=== PATIENT | male | born 1965 | race Caucasian/White ===

== ENCOUNTER 2018-04-25 16:49 | Observation (INO) | payer BC ==
--- NOTE | 2018-04-25 17:42 | PDOC ---
Rapid Medical Evaluation Time Seen by Provider: 04/25/18 17:39 Medical Evaluation: 04/25/18 17:39 I have performed a brief-in person evaluation of this patient in triage. The patient presents to the ER c/o: diarrhea [id number] (non bloddy non bilious) with mid abd pain described as 8/10 non raidating carmping intermittent discomfort/more into hiw LLQ Anorexia x2days "Everything I was eating went right through me Pertinent PE findings: mid diffuse abd pain on palp I have ordered the following: Stool culture/cbc/cmp/iv The patient will proceed to the ED for further evaluation. H/O IBS and previous COLITIS FEELS SIMILAR TO MY COLITIS" Took immondium last Sunday until yesterday but "stopped working" Sent to the ER by his PMD Dr. Sebas Oliveros/Not affiliated with [facility] [phone] 04/25/18 18:04
[2018-04-25 18:05] LABS: BASO % 0.3 % (0-2.0); EOS % 0.6 % (0-4.5); HEMATOCRIT 44.3 % (35.4-49); HEMOGLOBIN 15.3 GM/dL (11.7-16.9); LYMPH % 27.6 % (8-40); MCH 31.7 pg (25.7-33.7); MCHC 34.6 g/dl (32.0-35.9); MEAN CELL VOLUME 91.8 fl (80-96); MONO % 16.3 % (3.8-10.2); NEUT % 55.2 % (42.8-82.8); PLATELET COUNT 314 K/MM3 (134-434); RBC 4.82 M/mm3 (4.00-5.60); RDW 12.4 % (11.9-15.9); WHITE BLOOD COUNT 8.5 K/mm3 (4.0-10.0)
--- NOTE | 2018-04-25 18:10 | PDOC ---
History of Present Illness - General Chief Complaint: Pain, Acute Stated Complaint: PCP SENT Time Seen by Provider: 04/25/18 17:39 History Source: Patient Exam Limitations: No Limitations - History of Present Illness Initial Comments: 04/25/18 18:08 52 YOM with h/o colitis, IBS, and HTN, who p/w light brown/watery diarrhea for the past 10 days, 8/10 intermittent mid-abdominal cramping radiating to the LLQ , decreased appetite x2 days, sxs not relieved with Immodium. This feels the same as his prior colitis 10 years ago for which he was tx in the hospital for a week with abx. He had a similar but self-limited episode about 6 months ago which resolved after 2 days. He spoke with his PCP Dr. Oliveros (not a [facility] affiliate) who instructed him to come into the ED. He denies fever, chills, nausea, vomiting, black/bloody stool, excessive EtOH use, recent abx treatments , camping, travel, drinking from streams, or eating strange/questionable foods. Past History - Past Medical History Allergies/Adverse Reactions: Allergies Allergy/AdvReac Type Severity Reaction Status Date / Time No Known Allergies Allergy Verified 04/25/18 18:01 Home Medications: Ambulatory Orders Atorvastatin Ca [Lipitor] 20 mg PO HS 04/25/18 Hyoscyamine Sulfate 0 mg PO DAILY 04/25/18 Lansoprazole [Prevacid] 30 mg PO DAILY 04/25/18 Olmesartan Medoxomil [Benicar] 20 mg PO DAILY 04/25/18 CVA: No COPD: No DVT: No - Immunization History Immunization Up to Date: Yes - Suicide/Smoking/Psychosocial Hx Smoking History: Never smoked Information on smoking cessation initiated: No Hx Alcohol Use: No Drug/Substance Use Hx: No Substance Use Type: None Review of Systems - Review of Systems Able to Perform ROS?: Yes Constitutional: Yes: Loss of Appetite, Malaise. No: Chills, Fever, Unexplained wgt Loss HEENTM: No: Nose Congestion, Throat Pain Respiratory: No: Cough, Shortness of Breath Cardiac (ROS): No: Chest Pain, Palpitations ABD/GI: Yes: Diarrhea, Other (abdominal pain). No: Constipated, Nausea, Vomiting : No: Burning, Dysuria Musculoskeletal: No: Back Pain, Neck Pain Integumentary: No: Bruising, Rash Neurological: No: Headache, Numbness, Tingling, Weakness, Dizziness Endocrine: No: Unexplained Weight Gain, Unexplained Weight Loss *Physical Exam - Vital Signs Last Vital Signs Temp Pulse Resp BP Pulse Ox 98.7 F 105 H 16 111/56 96 04/25/18 18:02 04/25/18 18:02 04/25/18 18:02 04/25/18 18:02 04/25/18 18:02 - Physical Exam General Appearance: Yes: Nourished, Appropriately Dressed, Other (nontoxic and well appearing adult male in no distress who is answering questions appropriately). No: Apparent Distress HEENT: positive: EOMI, MICHAEL, Normal Voice, Hearing Grossly Normal, Other (moist mucous membranes). negative: Scleral Icterus (R), Scleral Icterus (L), Nasal Congestion Neck: positive: Trachea midline, Supple. negative: Tender, Rigid Respiratory/Chest: positive: Lungs Clear, Normal Breath Sounds. negative: Respiratory Distress, Crackles, Rhonchi, Stridor, Wheezing Cardiovascular: positive: Regular Rhythm, Regular Rate. negative: Murmur Gastrointestinal/Abdominal: positive: Normal Bowel Sounds, Tender (mild umbilical and mild LLQ ttp), Soft, Increased Bowel Sounds. negative: Organomegaly, Pulsatile Mass, Guarding Musculoskeletal: positive: Normal Inspection. negative: CVA Tenderness, Decreased Range of Motion, Vertebral Tenderness Extremity: positive: Normal Capillary Refill, Normal Inspection, Normal Range of Motion. negative: Tender, Cyanosis Integumentary: positive: Normal Color, Dry, Warm. 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 No recent abx, travel, camping, drinking from streams, bloody/black/white stool. Does have h/o colitis requiring admission and abx 10 years ago, states feels similar. Initial Vital Signs Temp Pulse Resp BP Pulse Ox 98.7 F 105 H 16 111/56 96 04/25/18 18:02 04/25/18 18:02 04/25/18 18:02 04/25/18 18:02 04/25/18 18:02 Exam: Results as noted in Physical Exam section. DDX IBNLT: increased secretion (infectious; MC is viral with norovirus MC cause for adults and rotavirus MC cause for pediatrics), decreased absorption, increased osmotic load (e.g. laxatives, colchicine), abnormal motility (e.g. IBS , neuropathy) W/U ordered: CBCD CMP Lipase EKG CT A/P with IV/PO contrast TX ordered: IVF EKG: Reviewed; results as noted in ECG Review section. CT: Acute colitis, extensive, as noted on CT results. Laboratory Tests 04/25/18 04/25/18 04/25/18 17:45 17:45 20:30 WBC 8.5 RBC 4.82 Hgb 15.3 Hct 44.3 MCV 91.8 MCH 31.7 MCHC 34.6 RDW 12.4 Plt Count 314 MPV 8.0 Absolute Neuts (auto) 4.7 Neutrophils % 55.2 Lymphocytes % 27.6 Monocytes % 16.3 H Eosinophils % 0.6 Basophils % 0.3 Nucleated RBC % 0 Sodium 143 Potassium 4.1 Chloride 108 H Carbon Dioxide 27 Anion Gap 8 BUN 18 Creatinine 1.2 Creat Clearance w eGFR > 60 Random Glucose 86 Calcium 8.5 Total Bilirubin 0.6 AST 16 ALT 30 Alkaline Phosphatase 73 Total Protein 6.8 Albumin 3.8 Lipase 65 L Given watery diarrhea hx will treat for presumed infectious cause. Ordered is Levaquin/Flagyl IVPB. Patient's BP has decreased as below despite fluids. Vital Signs Temperature 98.7 F 04/25/18 18:02 Pulse Rate 95 H 04/25/18 21:00 Respiratory Rate 16 04/25/18 21:00 Blood Pressure 95/65 04/25/18 21:00 O2 Sat by Pulse Oximetry (%) 97 04/25/18 21:00 Reassessment: Feels the same, comfortable with plan to stay for Obs. ADMIT The Pt is unsafe for discharge at this time. They require further hospital observation, workup, and treatment. Microblog sent to [facility] for admission. Spoke with admitting team Dr. Alfonso and Dr. Jasso, in agreement Pt to be admitted. Decision to Admit order placed to [facility] covering attending Dr. Alfonso. *DC/Admit/Observation/Transfer Diagnosis at time of Disposition: Acute colitis Diarrhea Qualifiers: Diarrhea type: unspecified type Qualified Code(s): R19.7 - Diarrhea, unspecified - Discharge Dispostion Condition at time of disposition: Guarded Decision to Admit order: Yes - Referrals - Patient Instructions - Post Discharge Activity
[2018-04-25 18:31] LABS: ALBUMIN 3.8 g/dl (3.4-5.0); ANION GAP 8 (8-16); BILIRUBIN,TOTAL 0.6 mg/dL (0.2-1.0); BLOOD UREA NITROGEN 18 mg/dL (7-18); CALCIUM 8.5 mg/dL (8.5-10.1); CHLORIDE 108 mmol/L (98-107); CO2 27 mmol/L (21-32); CREATININE 1.2 mg/dL (0.7-1.3); GLUCOSE,RANDOM 86 mg/dL (74-106); POTASSIUM 4.1 mmol/L (3.5-5.1); SGOT/AST 16 U/L (15-37); SGPT/ALT 30 U/L (12-78); SODIUM 143 mmol/L (136-145); TOT PROT 6.8 g/dl (6.4-8.2)
[2018-04-25 18:32] LABS: ALK PHOS 73 U/L (45-117)
[2018-04-25] MEDS ORDERED: SODIUM CHLORIDE 0.9% 500 ML INFUS.BAG IV ONE (19:54)
--- NOTE | 2018-04-25 19:57 | PDOC ---
Attending Attestation - HPI HPI: 04/25/18 20:40 The patient is a 52-year-old male with a past medical history of colitis, IBS, and HTN presents to the emergency department with diarrhea. Patient presents with a 10-day history of diarrhea, denies hematochezia or melena, associated with lower abdominal cramping. Patient denies any changes in diet, reports a decrease in appetite secondary to multiple episodes of diarrhea. Patient reports taking Imodium, with occasional relief, patient states someday hell have 10 episodes and other days 3. Denies fever, chills, cough or a headache. Denies chest pain or shortness of breath. Denies sick contact. Denies recent use of antibiotic. Denies any change in diet. Denies dysuria, hematuria, frequency or urgency to urinate. Denies nausea, vomiting or constipation. Allergies: NKDA Social history: Alcohol use. Denies history of smoking or recreational drug use. Surgical history: None reported PCP: Dr. Sebas Oliveros Not affiliated with [facility] [phone] - Physicial Exam PE: 04/25/18 20:40 GENERAL: Awake, alert, and fully oriented, in no acute distress HEAD: No signs of trauma EYES: PERRLA, EOMI, sclera anicteric, conjunctiva clear ENT: Auricles normal inspection, hearing grossly normal, nares patent, oropharynx clear without exudates. Moist mucosa NECK: Normal ROM, supple, no lymphadenopathy, JVD, or masses LUNGS: Breath sounds equal, clear to auscultation bilaterally. No wheezes, and no crackles HEART: Regular rate and rhythm, normal S1 and S2, no murmurs, rubs or gallops ABDOMEN: (+) LLQ tenderness. Soft, normoactive bowel sounds. No guarding, no rebound. No masses EXTREMITIES: Normal range of motion, no edema. No clubbing or cyanosis. No cords, erythema, or tenderness NEUROLOGICAL: Cranial nerves II through XII grossly intact. Normal speech, normal gait SKIN: Warm, Dry, normal turgor, no rashes or lesions noted. - Medical Decision Making 04/25/18 20:46 Documentation prepared by Tatum Nieto, acting as medical educator for Jill Benoit DO. <Tatum Nieto - Last Filed: 04/25/18 20:46> - Resident Resident Name: Margo Roca - ED Attending Attestation I have performed the following: I have examined & evaluated the patient, The case was reviewed & discussed with the resident, I agree w/resident's findings & plan, Exceptions are as noted - Medical Decision Making 04/25/18 19:56 I, Dr. Jill Benoit, DO, attest that this document has been prepared under my direction and personally reviewed by me in its entirety. I further attest, that it accurately reflects all work, treatment, procedures and medical decision -making performed by me. 04/25/18 19:56 a/p: 52yo male with LLQ pain and diarrhea x 10 days -hx of colitis -GI is Dr. Christian -concern for colitis -no recent abx, no recent travel, no new meds -will send labs, ct abd/pelvis with contrast -ivf hydration -will monitor and reassess <Jill Benoit - Last Filed: 04/25/18 21:23> Heart Score/ECG Review - ECG Intrepretation Comment:: 04/25/18 21:23 sinus at 89, nl axis, nl interval, t wave inversions III, no other acute findings <Jill Benoit - Last Filed: 04/25/18 21:23>
[2018-04-25] MEDS ORDERED: SODIUM CHLORIDE 0.9% 1000 ML INFUS.BAG IV ONE (22:15)
[2018-04-25] MEDS ORDERED: PANTOPRAZOLE SODIUM 40 MG VIAL IVPUSH ONE (22:32)
--- NOTE | 2018-04-25 22:39 | PN ---
Teaching Attending Note Name of Resident: Gareth Pérez ATTENDING PHYSICIAN STATEMENT I saw and evaluated the patient. I reviewed the resident's note and discussed the case with the resident. I agree with the resident's findings and plan as documented. SUBJECTIVE: Patient c/o diarrhea for weeks with no improvement, no history of recent antibiotic use or travel.No family history of chrons or UC. Patient's PMH significant for IBS. OBJECTIVE: Gen: A&O x3 HEENT: PERRLA, EOMI CVS: RRR Lungs: CTA Abd: distended, soft, NT, BS+ Ext: no edema CBCD WBC 8.5 K/mm3 (4.0-10.0) 04/25/18 17:45 RBC 4.82 M/mm3 (4.00-5.60) 04/25/18 17:45 Hgb 15.3 GM/dL (11.7-16.9) 04/25/18 17:45 Hct 44.3 % (35.4-49) 04/25/18 17:45 MCV 91.8 fl (80-96) 04/25/18 17:45 MCHC 34.6 g/dl (32.0-35.9) 04/25/18 17:45 RDW 12.4 % (11.9-15.9) 04/25/18 17:45 Plt Count 314 K/MM3 (134-434) 04/25/18 17:45 MPV 8.0 fl (7.5-11.1) 04/25/18 17:45 CMP Sodium 143 mmol/L (136-145) 04/25/18 17:45 Potassium 4.1 mmol/L (3.5-5.1) 04/25/18 17:45 Chloride 108 mmol/L (98-107) H 04/25/18 17:45 Carbon Dioxide 27 mmol/L (21-32) 04/25/18 17:45 Anion Gap 8 (8-16) 04/25/18 17:45 BUN 18 mg/dL (7-18) 04/25/18 17:45 Creatinine 1.2 mg/dL (0.7-1.3) 04/25/18 17:45 Creat Clearance w eGFR > 60 (>60) 04/25/18 17:45 Calcium 8.5 mg/dL (8.5-10.1) 04/25/18 17:45 Total Bilirubin 0.6 mg/dL (0.2-1.0) 04/25/18 17:45 AST 16 U/L (15-37) 04/25/18 17:45 ALT 30 U/L (12-78) 04/25/18 17:45 Alkaline Phosphatase 73 U/L (45-117) 04/25/18 17:45 Total Protein 6.8 g/dl (6.4-8.2) 04/25/18 17:45 Albumin 3.8 g/dl (3.4-5.0) 04/25/18 17:45 ASSESSMENT AND PLAN: Observation for Colitis Send stool studies IVF Protonix PRN Zofran PRN tylenol DVT prophylaxis
[2018-04-25] MEDS ORDERED: PANTOPRAZOLE SODIUM 40 MG VIAL ONE (23:19)
--- NOTE | 2018-04-26 01:16 | HP ---
CHIEF COMPLAINT: PCP: HISTORY OF PRESENT ILLNESS: 52 YOM with h/o colitis, IBS, and HTN, HLD, GERD, who p/w light brown/watery diarrhea for the past 10 days, 8/10 intermittent abdominal cramping radiating to the LLQ, decreased appetite x2 days w/ some weight loss, sxs not relieved with Immodium. This feels the same as his prior colitis 10 years ago for which he was tx in the hospital for a week with abx. He spoke with his PCP Dr. Oliveros (not a [facility] affiliate) who instructed him to come into the ED. He denies fever, chills, nausea, vomiting, black/bloody stool, dysuria excessive EtOH use, recent abx treatments, camping, drinking from streams, or eating strange/ questionable foods/changes in diet. He was this past week in [place] for work but says his sxs began before his trip ER course was notable for: (1)flagyl and levo given (2) (3) Recent Travel: PAST MEDICAL HISTORY: Lyme disease Colonoscopy 2 years ago, per pt normal EGD 15 yr ago was found to have H pylori and was tx EGD 8-10 yr ago , per pt was normal PAST SURGICAL HISTORY: Social History: Smoking: none Alcohol:none Drugs: none Family History: HTN HLD DM Allergies No Known Allergies Allergy (Verified 04/25/18 18:01) HOME MEDICATIONS: Home Medications Medication Instructions Recorded Atorvastatin Ca [Lipitor] 20 mg PO HS 04/25/18 Hyoscyamine Sulfate 0 mg PO DAILY 04/25/18 Lansoprazole [Prevacid] 30 mg PO DAILY 04/25/18 Olmesartan Medoxomil [Benicar] 20 mg PO DAILY 04/25/18 REVIEW OF SYSTEMS Per HPI PHYSICAL EXAMINATION Vital Signs - 24 hr 04/25/18 04/25/18 04/26/18 18:02 21:00 01:01 Temperature 98.7 F 98.7 F Pulse Rate 105 H Pulse Rate [ 95 H 90 Right] Respiratory 16 16 18 Rate Blood Pressure 111/56 Blood Pressure 95/65 110/74 [Left Arm] O2 Sat by Pulse 96 97 98 Oximetry (%) 04/26/18 01:02 Temperature Pulse Rate Pulse Rate [ Right] Respiratory Rate Blood Pressure Blood Pressure [Left Arm] O2 Sat by Pulse 98 Oximetry (%) GENERAL: Awake, alert, and fully oriented, in no acute distress. HEAD: Normal with no signs of trauma. EYES: extraocular movements intact, sclera anicteric, conjunctiva clear. No lid lag. EARS, NOSE, THROAT: oropharynx clear without exudates. Moist mucous membranes. NECK: Normal range of motion, supple without lymphadenopathy, JVD, or masses. LUNGS: Breath sounds equal, clear to auscultation bilaterally. No wheezes, and no crackles. No accessory muscle use. HEART: Regular rate and rhythm, normal S1 and S2 without murmur, rub or gallop. ABDOMEN: Soft, TTP LLQ not distended, normoactive bowel sounds, no guarding, no rebound, no masses. No hepatomegaly or splenomegaly. MUSCULOSKELETAL: Normal range of motion at all joints. No bony deformities or tenderness. UPPER EXTREMITIES: 2+ pulses, warm, well-perfused. No cyanosis. No clubbing. No peripheral edema. LOWER EXTREMITIES: 2+ pulses, warm, well-perfused. No calf tenderness. No peripheral edema. NEUROLOGICAL: Cranial nerves II-XII intact. Normal speech. Normal gait. PSYCHIATRIC: Cooperative. Good eye contact. Appropriate mood and affect. SKIN: Warm, dry, normal turgor, no rashes or lesions noted, normal capillary refill. Laboratory Results - last 24 hr 04/25/18 04/25/18 04/25/18 17:45 17:45 20:30 WBC 8.5 RBC 4.82 Hgb 15.3 Hct 44.3 MCV 91.8 MCH 31.7 MCHC 34.6 RDW 12.4 Plt Count 314 MPV 8.0 Absolute Neuts (auto) 4.7 Neutrophils % 55.2 Lymphocytes % 27.6 Monocytes % 16.3 H Eosinophils % 0.6 Basophils % 0.3 Nucleated RBC % 0 Sodium 143 Potassium 4.1 Chloride 108 H Carbon Dioxide 27 Anion Gap 8 BUN 18 Creatinine 1.2 Creat Clearance w eGFR > 60 Random Glucose 86 Calcium 8.5 Total Bilirubin 0.6 AST 16 ALT 30 Alkaline Phosphatase 73 Total Protein 6.8 Albumin 3.8 Lipase 65 L ASSESSMENT/PLAN: 52 YOM with h/o colitis, IBS, and HTN, HLD, GERD, who p/w light brown/watery diarrhea 2/2 colitis Unclear at this time what is the cause of colitis. Pt is stable at this time w / no fever, leukocytosis or drop in H/H -will send stool studies -GI consult (Dr. Harkins) if necessary -IVF -Protonix -PRN Zofran -PRN tylenol HCM -c/w home meds for HTN and HLD FEN -IVF -clear liquid diet as tolerated DVT prophylaxis SQH Dispo -will admit for obsveration -dc tomorow pending stool studies Visit type - Emergency Visit Emergency Visit: Yes ED Registration Date: 04/25/18 Care time: The patient presented to the Emergency Department on the above date and was hospitalized for further evaluation of their emergent condition. - New Patient This patient is new to me today: Yes Date on this admission: 04/26/18 - Critical Care Critical Care patient: No Hospitalist Screening - Colonoscopy Questionnaire Colonoscopy Questionnaire: Colonoscopy Questionnaire - Patient: 50 - 75 years old and never had a screening colonoscopy: No History of colon or rectal polyps, or CA: Unknown History of IBD, Crohn's disease or UC: Yes History of abdominal radiation therapy as a child: Unknown - Relative: 1 with colon or rectal CA, or polyps at age 60 or younger: Unknown Colon or rectal CA diagnosed at age 45 or younger: Unknown Multiple relatives with colon or rectal CA: Unknown - Outcome: Screening Result: Positive Screen
[2018-04-26] MEDS ORDERED: ACETAMINOPHEN 325 MG TABLET (FP) PO PRN (01:19)
[2018-04-26] MEDS ORDERED: ONDANSETRON 4 MG/2 ML VIAL IVPUSH PRN (01:19)
[2018-04-26 02:04] VITALS: BMI 23.3
[2018-04-26] MEDS: HEPARIN NA (PORCINE) 5,000 UNITS/ML 1ML VIAL SQ SCH ×4 (05:59→21:33)
[2018-04-26] MEDS: SODIUM CHLORIDE 1,000 ML IV SCH ×3 (06:01→23:50)
[2018-04-26 08:31] LABS: BASO % 0.3 % (0-2.0); EOS % 1.1 % (0-4.5); HEMATOCRIT 37.4 % (35.4-49); HEMOGLOBIN 13.2 GM/dL (11.7-16.9); LYMPH % 32.9 % (8-40); MCHC 35.2 g/dl (32.0-35.9); MEAN CELL VOLUME 93.8 fl (80-96); MEAN PLT VOLUME 8.5 fl (7.5-11.1); MONO % 16.4 % (3.8-10.2); NEUT % 49.3 % (42.8-82.8); PLATELET COUNT 240 K/MM3 (134-434); RBC 3.99 M/mm3 (4.00-5.60); RDW 12.2 % (11.9-15.9); WHITE BLOOD COUNT 6.3 K/mm3 (4.0-10.0)
[2018-04-26 08:42] LABS: ALBUMIN 2.9 g/dl (3.4-5.0); ALK PHOS 55 U/L (45-117); ANION GAP 8 (8-16); BILIRUBIN,TOTAL 0.5 mg/dL (0.2-1.0); BLOOD UREA NITROGEN 10 mg/dL (7-18); CALCIUM 7.5 mg/dL (8.5-10.1); CHLORIDE 109 mmol/L (98-107); CO2 25 mmol/L (21-32); CREATININE 0.8 mg/dL (0.7-1.3); GLUCOSE,RANDOM 79 mg/dL (74-106); SGOT/AST 13 U/L (15-37); SGPT/ALT 25 U/L (12-78); SODIUM 142 mmol/L (136-145); TOT PROT 5.6 g/dl (6.4-8.2)
--- NOTE | 2018-04-26 08:50 | EKG ---
Test Reason : Blood Pressure : / mmHG Vent. Rate : 089 BPM Atrial Rate : 089 BPM P-R Int : 132 ms QRS Dur : 090 ms QT Int : 356 ms P-R-T Axes : 051 058 025 degrees QTc Int : 433 ms NORMAL SINUS RHYTHM NON-SPECIFIC INTRA-VENTRICULAR CONDUCTION DELAY NO PREVIOUS ECGS AVAILABLE Confirmed by MARIAM BYRNE MD ([id number]) on 04/26/2018 8:50:05 AM Referred By: Confirmed By:MARIAM BYRNE MD
--- NOTE | 2018-04-26 09:11 | CON.GI ---
Consult Consult Specialty:: Gastroenterology Reason for Consultation:: posible colitis - History of Present Illness Chief Complaint: "laly been having diarrhea and abdominal pain for 10 days" History of Present Illness: Mr. Wilhelm is a 52 y/o male who presents to [facility] after having diarrhea and abdominal pain for around 10 days. Patient stated hat around 10 days ago he started having episodes of non-bloody diarrhea and abdominal pain (mainly in LLQ ) and attempted taking rolaids and peptobismol in hopes of relief. Patient has a history of colitis, last episodes being around 10 years ago, and states that this is similar to his last episode. He had a more milder version of this back in October which resolved within a few days after taking over the counter remedies. He states that everything, food and liquids, go straight through him and around 2 days ago he started losing his appetite hence why he went to his PCP. In the ER he was afebrile, slightly tachycardic at 105, with a normal white count of 8.5. His abdomen/pelvis CT showed continuous wall thickening along L half of transverse colon and descending colon, with rectal involvement and mild increased fluid content in the colon, likely suspicious for colitis. He was also given levaquin and flagyl in the ER. Patient states his last colonscopy was 2 years ago and last EGD was around 10 years ago, which was normal . He denies any family history of any GI malignancies. 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 Place of : [facility] History of Recent Travel: Yes (went to [place] last week ) <Indigo Hughes - Last Filed: 04/26/18 09:33> Referred by:: Hospitalist Service - History of Present Illness History of Present Illness: Was on doxycycline for several weeks in October for lyme disease <Aniket Centeno - Last Filed: 04/26/18 11:32> Home Medications <Indigo Hughes - Last Filed: 04/26/18 09:33> <Aniket Centeno - Last Filed: 04/26/18 11:32> - Allergies Allergies/Adverse Reactions: Allergies Allergy/AdvReac Type Severity Reaction Status Date / Time No Known Allergies Allergy Verified 04/25/18 18:01 - Home Medications Home Medications: Ambulatory Orders Atorvastatin Ca [Lipitor] 20 mg PO HS 04/25/18 Hyoscyamine Sulfate 0 mg PO DAILY 04/25/18 Lansoprazole [Prevacid] 30 mg PO DAILY 04/25/18 Olmesartan Medoxomil [Benicar] 20 mg PO DAILY 04/25/18 Family Disease History - Family Disease History Family Disease History: Diabetes: Father (HTN), Mother (HN), Heart Disease: Father, Mother Other Family History: no known family history of any GI malignancies <MundocristinaIndigo - Last Filed: 04/26/18 09:33> Review of Systems - Review of Systems Constitutional: reports: Loss of Appetite (for the past two days) Cardiovascular: denies: Chest Pain, Shortness of Breath Respiratory: denies: SOB Gastrointestinal: reports: Abdominal Pain (mainly LLQ discomfort), Diarrhea. denies: Nausea, Rectal Bleeding Genitourinary: denies: Burning <MundocristinaIndigo - Last Filed: 04/26/18 09:33> Physical Exam-GI Vital Signs: Vital Signs Temperature 98.3 F 04/26/18 06:00 Pulse Rate 87 04/26/18 06:00 Respiratory Rate 18 04/26/18 06:00 Blood Pressure 112/70 04/26/18 06:00 O2 Sat by Pulse Oximetry (%) 98 04/26/18 01:29 Constitutional: Yes: No Distress Eyes: No: Sclera Icterus Cardiovascular: Yes: Regular Rate and Rhythm. No: Murmur Respiratory: Yes: CTA Bilaterally Gastrointestinal Inspection: No: Distention ...Auscultate: Yes: Normoactive Bowel Sounds ...Palpate: Yes: Soft, Tenderness (tenderness mainly in LLQ) ...Percussion: No: Tympanitic ...Rectal Exam: Yes: Other (no external lesions noted; no stool noted in rectal vault; no palpable masses) Edema: No (no LE edema ) Labs: CBC, BMP 04/26/18 07:00 04/26/18 07:00 <Indigo Hughes - Last Filed: 04/26/18 09:33> Vital Signs: Vital Signs Temperature 98.3 F 04/26/18 10:50 Pulse Rate 84 04/26/18 10:50 Respiratory Rate 18 04/26/18 10:50 Blood Pressure 107/63 04/26/18 10:50 O2 Sat by Pulse Oximetry (%) 98 04/26/18 01:29 ...Palpate: Yes: Tenderness Labs: CBC, BMP 04/26/18 07:00 04/26/18 07:00 <Aniket Centeno - Last Filed: 04/26/18 11:32> Imaging - Results Cat Scan: Report Reviewed, Image Reviewed <Indigo Hughes - Last Filed: 04/26/18 09:33> Problem List - Problems (1) Acute colitis Assessment/Plan: given normal white count and vitally stable, unclear what the etiology of the colitis is: -continue with IVF and monitor for electrolyte abnormalities given multiple episodes of diarrhea -stool studies and C diff pending Code(s): K52.9 - NONINFECTIVE GASTROENTERITIS AND COLITIS, UNSPECIFIED <Indigo Hughes - Last Filed: 04/26/18 09:33> - Problems (1) Acute colitis Assessment/Plan: ATTENDING PHYSICIAN STATEMENT I saw and evaluated the patient. I reviewed the resident's note and discussed the case with the resident. I agree with the resident's findings and plan as documented. SUBJECTIVE: 52M with acute diarrhea for 10 days and diminished appetite oover the last couple of days. H/o "colitis" 10 years ago and intermittent episoides of diarrhea throughout his life. 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 Sebas Oliveros: performed colonoscopy 2 years ago. Normal per patient Currently diarrhea persists, worsened since IV Abx started OBJECTIVE: Anicteric Hrt RRR Lungs: CTA B/L Abdomen: non-distended, + normaocative BS, no scars, mild TTP left abdomen. no guarding. Ext: No LE edema Labs: as noted above ASSESSMENT: 52M with colitis: Differential would include an infectious process given acuity of symptoms however the fact that it has lasted 10 days and that he has had altered bowel habits in the past could also favor IBD such as a flare of ulcerative colitis PLAN: Awaiting stool studies. If stool studies negative, stop Levaquin Ordered O&P Advance diet to low residue / low fiber Obtain information from his PMD/Tube Buffer Dr. Oliveros re: previous work- up and diagnoses If clinically improving over the weekend, can follow-up with PMD/ Tube Buffer as an outpatient, otherwise plan for flex sig sunday. Discussed plan with Aries Melonie. Code(s): K52.9 - NONINFECTIVE GASTROENTERITIS AND COLITIS, UNSPECIFIED <Aniket Centeno - Last Filed: 04/26/18 11:32>
[2018-04-26] MEDS ORDERED: PANTOPRAZOLE 40 MG TABLET (FP) PO SCH (10:00)
[2018-04-26] MEDS ORDERED: metroNIDAZOLE 250 MG TABLET PO SCH ×2 (11:00→14:00)
[2018-04-26] MEDS: metroNIDAZOLE 250 MG TABLET PO SCH ×2 (12:43→20:25)
[2018-04-26] MEDS: VALSARTAN 160 MG TABLET (UD) PO SCH (12:43)
--- NOTE | 2018-04-26 15:44 | PN ---
Teaching Attending Note Name of Resident: Marcos Montano ATTENDING PHYSICIAN STATEMENT I saw and evaluated the patient. I reviewed the resident's note and discussed the case with the resident. I agree with the resident's findings and plan as documented. SUBJECTIVE: No fever or chills. LLQ abd pain . OBJECTIVE: NAD Cv: RRR Lungs: CTAB Ext: no edema Abd: soft, ND, TTP in LLQ and suprapubic area. no rebound tenderness or guarding ASSESSMENT AND PLAN: 52 y/o man with H/o HTn, IBS, previous colitis , HLP, GERD, Lyme disease , and helicobater pylori in past who presented with abd pain and diarrhea and was found to have L sided colitis 1- L sided colitis: infectious vs inflammatory vs meds induced ( uses NSAIDs) - levaquin and flagyl for now - appreciate GI input, possible flex sig if no improvement - IVF - advance diet - follow stool cx 2- h/o HTN: cont ARB 3- DVT PX
--- NOTE | 2018-04-26 16:32 | PN ---
Physical Exam: SUBJECTIVE: Patient seen and examined at bedside. Continued having diarrhea and cramping overnight. Comfortable otherwise. OBJECTIVE: Vital Signs Period Temp Pulse Resp BP Sys/Noel Pulse Ox Last 24 Hr 98.2 F-98.7 F 84-105 16-18 95-112/56-74 96-98 GENERAL: The patient is awake, alert, and fully oriented, in no acute distress. HEAD: Normal with no signs of trauma. EYES: PERRLA, EOMI, sclera anicteric, conjunctiva clear. No ptosis. ENT: moist mucous membranes NECK: Trachea midline, full range of motion, supple, no JVD, no cervical LAD LUNGS: Breath sounds equal, clear to auscultation bilaterally, no wheezes, no crackles, no accessory muscle use HEART: Regular rate, borderline tachycardic, S1 S2 without murmur, rub or gallop. ABDOMEN: +bs, soft, TTP in LLQ EXTREMITIES: 2+ pulses, warm, well-perfused, no edema. NEUROLOGICAL: Cranial nerves II through XII grossly intact, 5/5 strength x 4 extremities, sensorium grossly intact PSYCH: Normal mood, normal affect SKIN: Warm, dry, normal turgor, no rashes or lesions noted. Laboratory Results - last 24 hr 04/25/18 04/25/18 04/25/18 17:45 17:45 20:30 WBC 8.5 RBC 4.82 Hgb 15.3 Hct 44.3 MCV 91.8 MCH 31.7 MCHC 34.6 RDW 12.4 Plt Count 314 MPV 8.0 Absolute Neuts (auto) 4.7 Neutrophils % 55.2 Lymphocytes % 27.6 Monocytes % 16.3 H Eosinophils % 0.6 Basophils % 0.3 Nucleated RBC % 0 Sodium 143 Potassium 4.1 Chloride 108 H Carbon Dioxide 27 Anion Gap 8 BUN 18 Creatinine 1.2 Creat Clearance w eGFR > 60 Random Glucose 86 Calcium 8.5 Total Bilirubin 0.6 AST 16 ALT 30 Alkaline Phosphatase 73 C-Reactive Protein Total Protein 6.8 Albumin 3.8 Lipase 65 L 04/26/18 04/26/18 04/26/18 07:00 07:00 07:00 WBC 6.3 RBC 3.99 L Hgb 13.2 Hct 37.4 D MCV 93.8 MCH 33.0 MCHC 35.2 RDW 12.2 Plt Count 240 D MPV 8.5 Absolute Neuts (auto) 3.1 Neutrophils % 49.3 Lymphocytes % 32.9 Monocytes % 16.4 H Eosinophils % 1.1 D Basophils % 0.3 Nucleated RBC % 0 Sodium 142 Potassium 4.0 Chloride 109 H Carbon Dioxide 25 Anion Gap 8 BUN 10 Creatinine 0.8 Creat Clearance w eGFR > 60 Random Glucose 79 Calcium 7.5 L Total Bilirubin 0.5 AST 13 L ALT 25 Alkaline Phosphatase 55 D C-Reactive Protein 3.1 H Cancelled Total Protein 5.6 L Albumin 2.9 L Lipase Active Medications Generic Name Dose Route Start Last Admin Trade Name Freq PRN Reason Stop Dose Admin Acetaminophen 650 mg 04/26/18 01:19 Tylenol - PO Q4H PRN PAIN LEVEL 1-5 Atorvastatin Calcium 20 mg 04/26/18 22:00 Lipitor - PO HS ELICIA Heparin Sodium (Porcine) 5,000 unit 04/26/18 06:00 04/26/18 05:59 Heparin - SQ 5,000 unit TID ELICIA Administration Sodium Chloride 1,000 mls @ 75 mls/hr 04/26/18 01:30 04/26/18 10:56 Normal Saline - IV 75 mls/hr ASDIR ELICIA Administration Levofloxacin 750 mg 04/26/18 22:00 Levaquin - PO DAILY@2200 ELICIA Metronidazole 500 mg 04/26/18 12:15 04/26/18 12:43 Flagyl - PO 500 mg Q8H ELICIA Administration Ondansetron HCl 4 mg 04/26/18 01:19 Zofran Injection IVPUSH Q6H PRN NAUSEA Valsartan 160 mg 04/26/18 10:00 04/26/18 12:43 Diovan - PO Not Given DAILY [facility] ASSESSMENT/PLAN: 52 y/o M w/ PMHx colitis 10 years ago treated with 1 month of ABx, IBS, GERD, HTN, HLD, Lyme dz, p/w watery brown diarrhea and painful abdominal cramping x 10 days, confirmed by CT as acute colitis involving large bowel continuously from left transverse colon to rectum #colitis: infectious vs inflammatory -C Diff negative -f/u stool culture -empiric levaquin + flagyl -IVF NS @ 75 -GI consult appreciated, anticipate flex sig on Sunday #HTN -cont home valsartan #FEN -IVF -monitor lytes -low fiber, lactose restricted diet #DVT PPx -heparin subq #dispo -monitor on med/surg Visit type - Emergency Visit Emergency Visit: No - New Patient This patient is new to me today: Yes Date on this admission: 04/26/18 - Critical Care Critical Care patient: No
[2018-04-26] MEDS ORDERED: ATORVASTATIN CA 20 MG TABLET (FP) PO SCH (22:00)
[2018-04-27] MEDS: metroNIDAZOLE 250 MG TABLET PO SCH ×2 (04:11→12:36)
[2018-04-27] MEDS: SODIUM CHLORIDE 1,000 ML IV SCH ×2 (04:11→14:46)
[2018-04-27] MEDS: HEPARIN NA (PORCINE) 5,000 UNITS/ML 1ML VIAL SQ SCH ×2 (05:58→14:46)
[2018-04-27 07:46] LABS: ANION GAP 7 (8-16); BLOOD UREA NITROGEN 7 mg/dL (7-18); CALCIUM 7.8 mg/dL (8.5-10.1); CHLORIDE 110 mmol/L (98-107); CO2 27 mmol/L (21-32); CREATININE 0.8 mg/dL (0.7-1.3); GLUCOSE,RANDOM 91 mg/dL (74-106); MAGNESIUM 2.2 mg/dL (1.8-2.4); POTASSIUM 4.2 mmol/L (3.5-5.1); SODIUM 144 mmol/L (136-145)
[2018-04-27 07:48] LABS: BASO % 0.4 % (0-2.0); EOS % 0.9 % (0-4.5); HEMATOCRIT 35.8 % (35.4-49); HEMOGLOBIN 12.6 GM/dL (11.7-16.9); LYMPH % 33.2 % (8-40); MCH 33.3 pg (25.7-33.7); MCHC 35.1 g/dl (32.0-35.9); MEAN CELL VOLUME 94.8 fl (80-96); MEAN PLT VOLUME 8.4 fl (7.5-11.1); MONO % 11.1 % (3.8-10.2); NEUT % 54.4 % (42.8-82.8); PLATELET COUNT 224 K/MM3 (134-434); RBC 3.78 M/mm3 (4.00-5.60); RDW 12.4 % (11.9-15.9); WHITE BLOOD COUNT 5.4 K/mm3 (4.0-10.0)
--- NOTE | 2018-04-27 10:06 | PN ---
GI Progress Note Subjective: GI Note ( covering Dr Centeno) : Less diarrhea and cramps. Has an appetite. No bleeding. Tenesmus decreased. C diff is negative - Objective Vital Signs: Vital Signs Temperature 97.8 F 04/27/18 06:00 Pulse Rate 79 04/27/18 06:00 Respiratory Rate 18 04/27/18 06:00 Blood Pressure 110/68 04/27/18 06:00 O2 Sat by Pulse Oximetry (%) 98 04/27/18 01:00 Constitutional: Calm ...Auscultate: Yes: Normoactive Bowel Sounds ...Palpate: Yes: Soft, Other (nontender) Labs: CBC, BMP 04/27/18 06:00 04/27/18 06:00 Problem List - Problems (1) Acute colitis Assessment/Plan: Resolving infectious colitis. Will start BRAT diet. If diet is tolerated can consider discharge. Code(s): K52.9 - NONINFECTIVE GASTROENTERITIS AND COLITIS, UNSPECIFIED (2) Diarrhea Code(s): R19.7 - DIARRHEA, UNSPECIFIED Qualifiers: Diarrhea type: unspecified type Qualified Code(s): R19.7 - Diarrhea, unspecified
[2018-04-27] MEDS ORDERED: PT OWN MED DRAWER 7, Y5N ONE ×2 (10:37→11:45)
[2018-04-27] MEDS: VALSARTAN 160 MG TABLET (UD) PO SCH (12:35)
--- NOTE | 2018-04-27 14:39 | PN ---
Teaching Attending Note Name of Resident: Marcos Montano ATTENDING PHYSICIAN STATEMENT I saw and evaluated the patient. I reviewed the resident's note and discussed the case with the resident. I agree with the resident's findings and plan as documented. SUBJECTIVE: No fever or chills. Abd pain has improved . diarrhea improved. feels stronger today OBJECTIVE: NAD Cv: RRR Lungs: CTAB Ext: no edema Abd: soft, ND,minimal tenderness in LLQ no rebound tenderness or guarding ASSESSMENT AND PLAN: 52 y/o man with H/o HTn, IBS, previous colitis , HLP, GERD, Lyme disease , and helicobater pylori in past who presented with abd pain and diarrhea and was found to have L sided colitis 1- L sided colitis: infectious vs inflammatory vs meds induced ( uses NSAIDs) - stool cx is growing a pending organism, ( might porcelain turner to be normal bonny ) - cont levaquin and flagyl for now day 2/7 - BRAT diet started - IVF now 2- h/o HTN: cont ARB 3- DVT PX patient feels much better and is interested in going home if cont to feel better. if so, will dc on Abx , and have him follow with His PCP/GI for colonoscopy .
--- NOTE | 2018-04-27 15:32 | DS ---
Physical Exam: SUBJECTIVE: Patient seen and examined at bedside. Reports reduced frequency of diarrhea and resolution of cramping. No complaints otherwise. Advanced to BRAT diet at lunch, tolerated well and had well-formed stool. OBJECTIVE: Vital Signs Period Temp Pulse Resp BP Sys/Noel Pulse Ox Last 24 Hr 97.5 F-98.2 F 76-85 18-20 106-125/60-86 97-98 PHYSICAL EXAM GENERAL: The patient is awake, alert, and fully oriented, in no acute distress. HEAD: Normal with no signs of trauma. EYES: PERRLA, EOMI, sclera anicteric ENT: Oropharynx clear without exudates, moist mucous membranes. NECK: Trachea midline, full range of motion, supple, no JVD, no LAD LUNGS: Breath sounds equal, clear to auscultation bilaterally, no wheezes, no crackles, no accessory muscle use HEART: Regular rate and rhythm, S1, S2 without murmur, rub or gallop. ABDOMEN: +bs, soft, non-distended, much improved TTP in LLQ EXTREMITIES: 2+ pulses, warm, well-perfused, no edema. NEUROLOGICAL: CNII-XII intact b/l, 5/5 strength x 4 extremities, sensorium intact PSYCH: Normal mood, normal affect. SKIN: Warm, dry, normal turgor, no rashes or lesions noted. LABS Laboratory Results - last 24 hr 04/27/18 04/27/18 06:00 06:00 WBC 5.4 RBC 3.78 L Hgb 12.6 Hct 35.8 MCV 94.8 MCH 33.3 MCHC 35.1 RDW 12.4 Plt Count 224 MPV 8.4 Absolute Neuts (auto) 3.0 Neutrophils % 54.4 Lymphocytes % 33.2 Monocytes % 11.1 H Eosinophils % 0.9 Basophils % 0.4 Nucleated RBC % 0 Sodium 144 Potassium 4.2 Chloride 110 H Carbon Dioxide 27 Anion Gap 7 L BUN 7 Creatinine 0.8 Creat Clearance w eGFR > 60 Random Glucose 91 Calcium 7.8 L Magnesium 2.2 MICROBIOLOGY: Stool C. diff toxin/antigen (04/25/18): negative Stool parasitology (04/25/18): pending Stool bacterial culture (04/25/18): pending organism, may be normal bonny IMAGING: CT A/P (7/12/18): No evidence of pneumoperitoneum, free intraperitoneal fluid, abscess or bowel obstruction. Concentric continuous wall thickening is seen along the left lateral half of the transverse colon as well as the length of the descending and sigmoid segments. Rectal involvement is also noted. There is equivocal subtle concentric wall thickening involving the remainder of the colon. No definite pericolonic edema or fluid accumulation is seen. Mildly increased fluid content is seen within the colon consistent with the history of current diarrheal illness. No gross small bowel pathology is identified. The spleen appears borderline in size. Several small right adrenal calcifications are seen. The liver, pancreas, left adrenal glands and kidneys demonstrate no discrete abnormality. There is no aortic aneurysm. No definite lymphadenopathy is noted. There is no discrete pelvic pathology. Status post lower lumbar spine surgery. Impression: Acute colitis is identified as discussed above. Right adrenal calcifications are seen consistent with the sequela of prior injury versus prior inflammation/infection. HOSPITAL COURSE: Date of Admission:04/25/18 Pt is a 52 y/o M w/ PMHx colitis 10 y/a (Tx w/ 1 month ABx), IBS, GERD, HTN, HLD , Lyme dz, p/w watery brown diarrhea and painful abdominal cramping x 10 days. No fever or leukocytosis on admission or at any point during hospitalization. Stool cultures were taken, C diff ruled out, otherwise pending at time of discharge as per above. CT A/P identified acute colitis from left transverse colon through rectum as per above. GI was consulted. Pt was placed on clear diet and IVF, and given metronidazole and levofloxacin empirically. Diet was advanced to low-fiber/lactose-free on HD2. On HD3, patient significantly improved symptomatically, was advanced to BRAT diet and tolerated well, having a well-formed stool. He was discharged on HD3 with referral to his PCP/ senior payroll administrator for possible endoscopic evaluation, prescriptions to complete 7 day course of ABx, and instructions to discontinue home anti- muscarinic pending further evaluation by PCP but otherwise resume home medications. Date of Discharge: 04/27/18 Minutes to complete discharge: 40 Discharge Summary Reason For Visit: ACUTE COLITIS/DIARRHEA Current Active Problems Acute colitis (Acute) Diarrhea (Acute) GERD (gastroesophageal reflux disease) (Chronic) IBS (irritable bowel syndrome) (Chronic) Condition: Improved - Instructions Diet, Activity, Other Instructions: You were hospitalized for an extended bout of diarrhea. You underwent CT of your abdomen which showed that you have acute colitis. Stool cultures were taken and you have been given antibiotics to protect against infectious causes of colitis. Referrals A referral for outpatient follow has been made to your PCP/senior payroll administrator, Dr. Sebas Christian. Please make an appointment with him within one week of discharge, at your earliest opportunity.as you will need a colonoscopy for further evaluation Medications You have been prescribed a course of oral antibiotics consisting of two medications, Levaquin and Flagyl. Please take these as directed to completion. Medical Recommendations Please discontinue use of hyoscyamine pending evaluation by Dr. Christian. Otherwise , please resume home medications as directed. Please take the prescribed antibiotics as directed. Please drink plenty of water. Please resume your normal diet gradually and carefully, as you can tolerate without exacerbation of your symptoms. You are being discharged prior to final results of your stool culture; if your stool culture reveals any information that affects your medical care, you will be contacted immediately. All of the information pertinent to your hospitalization and discharge has been provided to Dr. Christian. If you experience any worsening diarrhea, blood in diarrhea or stool, blood in urine, new onset or worsening abdominal pain, new onset of vomiting, loss of consciousness, weakness, difficulty breathing, unusual joint pain, or any other new symptom, please return to the Emergency Department immediately. Referrals: Sebas Christian MD [Other] Disposition: HOME - Home Medications Comprehensive Discharge Medication List: Ambulatory Orders Lansoprazole [Prevacid] 30 mg PO DAILY 04/25/18 Olmesartan Medoxomil [Benicar] 40 mg PO DAILY 04/25/18 Rosuvastatin [Crestor -] 5 mg PO DAILY 04/26/18 Metronidazole 500 mg PO Q8H #15 tablet 04/27/18 levoFLOXacin [Levaquin] 750 mg PO DAILY #5 tab 04/27/18 This patient is new to me today: No Emergency Visit: No Critical Care patient: No - Discharge Referral Referred to [facility] No
[2018-04-27 16:39] VITALS: BP 118/78; PULSE 76; TEMP 98.5
--- NOTE | 2018-04-29 12:24 | PDOC ---
Patient Follow-up (Call Back) - Post ED Follow - Up Chief Complaint: Diarrhea Condition at time of discharge: Improved Disposition at time of original discharge: HOME Reason for Call Back: Abnwl. Microbiology (shigella sonnei stool culture) - Disposition Rx Needed: No (pt on levaquin and flagly) Additional Instructions/Notes: report faxed to patients foil spinner Dr.Scott Oliveros at [phone] left message for patient to call me back as well to discuss the results
== END 2018-04-27 17:32 | disposition home or self-care (01) ==
LOC: JER 16:49 → JERBED 23:09 → UNDOADMOB 23:25 → J8W 04-26 01:20 → JERBED 04-26 01:20 → J8W 04-26 13:26
PROVIDERS: ADMIT Internal Medicine; ATTEND Internal Medicine
PROC: 3E03329 Introduction of Other Anti-infective into Peripheral Vein, Percutaneous Approach (ICD-10-PCS; principal; 2018-04-25)
PROC: 3E033GC Introduction of Other Therapeutic Substance into Peripheral Vein, Percutaneous Approach (ICD-10-PCS; 2018-04-25)
PROC: 3E0337Z Introduction of Electrolytic and Water Balance Substance into Peripheral Vein, Percutaneous Approach (ICD-10-PCS; 2018-04-25)
PROC: 3E013GC Introduction of Other Therapeutic Substance into Subcutaneous Tissue, Percutaneous Approach (ICD-10-PCS; 2018-04-25)
DX: K52.9 Noninfective gastroenteritis and colitis, unspecified (principal); I10 Essential (primary) hypertension; K21.9 Gastro-esophageal reflux disease without esophagitis
CPT/HCPCS: 36415; 74177-TC; 80048; 80053; 83690; 83735; 85025; 86140; 87045; 87046; 87177; 87186; 87209; 87324; 87449; 93005; 93010; 99285-25; G0378; J1644; J7030